=== PATIENT | male | born 1975 | race Caucasian/White ===

== ENCOUNTER 2023-11-09 11:05 | Outpatient (CLI) | payer BC, SELFPAY ==
--- NOTE | ~2023-11-09 | XR_ITS ---
XR sacroiliac joints min 3V DATE: 11/09/2023 11:30 INDICATION: Post laminectomy syndrome TECHNIQUE: AP and bilateral oblique views of the sacroiliac joints COMPARISON: None FINDINGS: Status post left posterior surgical fusion at L5-S1 with pedicle screws and rods. There is interbody spinal fusion and anterior plates and screws at L5-S1 as well. Normal alignment at the sacroiliac joints. No erosive change or ankylosis. Surgical clips overlie left pelvic area. IMPRESSION: No significant abnormality of the sacroiliac joints Reviewed, dictated and finalized at [facility]. Reviewed, dictated and finalized at location [facility].
--- NOTE | ~2023-11-09 | XR_ITS ---
XR lumbar spine min 4V DATE: 11/09/2023 11:30 INDICATION: Postlaminectomy syndrome TECHNIQUE: AP, lateral, bilateral oblique views, cone-down lateral lumbosacral view COMPARISON: None FINDINGS: There are pedicle screws on the left at L5-S1 providing posterior surgical fusion. Anterior plate and screws are noted at L5-S1 in addition to interbody spinal fusion at this level. Chronic minimal anterior wedging at T12 and chronic mild anterior wedging at L1. Moderate degenerative disc disease at L1-2. No fracture or bone destruction is detected. The sacroiliac joints are intact. IMPRESSION: Status post left posterior, interbody and anterior surgical fusion at L5-S1 Reviewed, dictated and finalized at location B.
== END 2023-11-09 11:06 ==
LOC: MICIMG 11:09
PROVIDERS: PCP Pain Medicine Pain Medicine; Visit Provider Pain Medicine Pain Medicine
DX: M54.16 Radiculopathy, lumbar region (principal); M96.1 Postlaminectomy syndrome, not elsewhere classified; Z98.1 Arthrodesis status
CPT/HCPCS: 72110; 72202